=== PATIENT | female | born 1980 | race Caucasian/White ===

== ENCOUNTER 2023-01-25 10:52 | Outpatient (OUT) | payer OTHER, SELFPAY ==
--- NOTE | 2023-01-25 10:56 | MM_ITS ---
Patient: VERO MCGEE Exam Date: 01/25/2023 : 1980 Gender:F Ordering : DR Ilya Brennan . Admission #: [id number] Family : Non-Staff Physician Order #: [id number] CLICK HERE TO VIEW EXAM RADIOLOGY REPORT PROCEDURE: MM TOMOSYNTHESIS SCREENING BI COMPARISON: MG MAMM SCREEN 3D JAN CAD, 10/13/2021. MG MAMM SCREEN JAN W CAD, 05/13/2020. INDICATIONS: Screening Calculator Name NCI Breast Cancer Risk Assessment Tool 5 Year Breast Cancer Risk 0.60% Lifetime Breast Cancer Risk 8.90% Personal Breast Cancer No Personal Ovarian Cancer No Treatments None Family Cancers Aunt-maternal with breast cancer at age 60; Grandmother-maternal with leukemia cancer at age 20. LOCATION: [facility] BREAST COMPOSITION: Scattered areas fibroglandular density. FINDINGS: DIAGNOSTIC CATEGORY 2--BENIGN FINDING. NO CHANGE FROM COMPARISON. Scattered benign-appearing nodules are present. Scattered benign-appearing calcifications are present. Scattered benign-appearing lymph nodes are present. RIGHT BREAST: No significant suspicious finding. LEFT BREAST: No significant suspicious finding. RECOMMENDATIONS: ROUTINE MAMMOGRAM AND CLINICAL EVALUATION IN 12 MONTHS. PLEASE NOTE: A NORMAL MAMMOGRAM DOES NOT EXCLUDE THE POSSIBILITY OF BREAST CANCER. A CLINICALLY SUSPICIOUS PALPABLE LUMP SHOULD BE BIOPSIED. Dictated by: William Gandhi MD on 01/25/2023 at 12:38 Approved by: William Gandhi MD on 01/25/2023 at 12:39
== END 2023-01-25 10:53 | disposition home or self-care (01) ==
LOC: MAMMO 10:52
PROVIDERS: Visit Provider Obstetrics & Gynecology
DX: Z12.31 Encounter for screening mammogram for malignant neoplasm of breast (principal); Z80.3 Family history of malignant neoplasm of breast; Z80.6 Family history of leukemia
CPT/HCPCS: 77063; 77067

== ENCOUNTER 2023-03-12 18:05 | Emergency (ER) | payer OTHER, SELFPAY ==
[2023-03-12] VITALS (17 sets, daily range): BP systolic 109–148; BP diastolic 67–101; PULSE 58–90; RESP 16–24; TEMP 36.8; O2SAT 96–100; BMI 32.1
--- NOTE | 2023-03-12 18:39 | XR_ITS ---
The [address] [address] Patient Name: VERO MCGEE MRN: [id number] date: 1980 Sex: F Assigned Patient Location: ER Current Patient Location: ER Accession/Order Number: [id number] Exam Date: 03/12/2023 18:49 Report Date: 03/12/2023 19:29 At the request of: JENNIFER DAWKINS Procedure: XR chest 1V EXAMINATION: XR chest 1V, , 03/12/2023 6:49 PM EDT INDICATION: chest pain HISTORY: Ordering Provider Reason for Exam: chest pain Technologist Note: Additional: COMPARISON: None. TECHNIQUE: Chest x-ray: One view. FINDINGS: No pneumothorax, pleural effusion or focal airspace consolidation. Heart is normal in size. Bony thorax is unremarkable. XR/XR chest 1V IMPRESSION: No acute cardiopulmonary process. Electronically authenticated by: TORI OQUENDO Date: 03/12/2023 19:29
--- NOTE | 2023-03-12 18:39 | ECG_ITS ---
The 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
--- NOTE | 2023-03-12 18:40 | ED.CHESTPAI1 ---
HPI - Chest Pain General Chief Complaint: Chest Pain Stated Complaint: CHEST PAIN x2 days Time Seen by Provider: 03/12/23 18:22 Source: patient Mode of arrival: walk-in Limitations: no limitations History of Present Illness HPI narrative: patient here complaining of chest pain. She had episodes yesterday from 10 AM to about 5 PM. She was symptom-free throughout the evening and did not wake her up. She had some recurrence of similar symptoms today. She describes it as the sternal area discomfort that is a very quick stabbing jabbing-type sensation that does not persist and is not prolonged is just a quick sensation that comes and goes. She has no radiation of pain or discomfort to her neck and jaw or arms. She has no tearing sensation into her back. She had no syncopal episodes or palpitations. Risk profile includes negative hypertension diabetes cholesterol problems. She quit smoking tobacco products and number of years ago. She doesn't vapo from time to time. Her father had coronary disease at age less than fifty. She has never had a exercise stress testing in the past. She does not currently have a primary care doctor. She has no shortness of breath. She has no risk factors for deep vein thrombosis. She has no previous phlebitis or deep vein thrombosis or PE. She is otherwise healthy. She says she is under a lot of stress. She has not seen a doctor for quite some time. He says she feels better at this time Related Data Allergies Allergy/AdvReac Type Severity Reaction Status Date / Time acetaminophen Allergy Mild Dizziness Verified 03/12/23 18:15 [From Tylenol Sinus Severe Congest] guaifenesin Allergy Mild Dizziness Verified 03/12/23 18:15 [From Tylenol Sinus Severe Congest] pseudoephedrine Allergy Mild Dizziness Verified 03/12/23 18:15 [From Tylenol Sinus Severe Congest] tioconazole Allergy Mild Verified 03/12/23 18:15 [From Monistat 1 (tioconazole)] PFSH PFSH Social History Smoking status: Former smoker Exam Narrative Exam Narrative: awake alert very pleasant here with a female mental health consultant. Constitutional skin is warm and dry there is no of the pallor or anemia she is not clammy or diaphoretic. HEENT examination shows no thyromegaly no jugular vein distention. Eye examination no conjunctivitis although she gives a history of macular degeneration. Neck is soft and supple. Respiratory she has no wheezes rales or rhonchi clicks rubs are all negative. Chest examination shows no clicks rubs snaps or murmur. Her abdomen she has no abdominal discomfort. Her extremities show no evidence of leg edema deep vein thrombosis phlebitis or erythema. Neurological is at baseline with no focal complaints or findings. Constitutional Vital Signs, click to edit/add: Last Vital Signs Temp 98.2 F 03/12/23 18:15 Pulse 82 03/12/23 18:15 Resp 18 03/12/23 18:15 BP 148/93 H 03/12/23 18:15 Pulse Ox 100 03/12/23 18:15 O2 Del Method Room Air 03/12/23 18:15 Course Vital Signs Vital signs: Vital Signs Temperature 98.2 F 03/12/23 18:15 Pulse Rate 82 03/12/23 18:15 Respiratory Rate 18 03/12/23 18:15 Blood Pressure 148/93 H 03/12/23 18:15 Pulse Oximetry 100 03/12/23 18:15 Oxygen Delivery Method Room Air 03/12/23 18:15 Temperature 98.2 F 03/12/23 18:15 Pulse Rate 82 03/12/23 18:15 Respiratory Rate 18 03/12/23 18:15 Blood Pressure 148/93 H 03/12/23 18:15 Pulse Oximetry 100 03/12/23 18:15 Oxygen Delivery Method Room Air 03/12/23 18:15 MDM - Chest Pain MDM Narrative Medical decision making narrative: this patient presents with a family history on her paternal side of coronary disease but otherwise no other risk factors. She has an atypical chest pains presentation but we will do cardiac enzymes and d-dimer chest x-ray for baseline evaluation. Care will be turned over to Dr. Rios. Discharge Plan Discharge Chief Complaint: Chest Pain Clinical Impression: Chest pain Referrals: Physician,Non-Staff, MD [Primary Care Provider] - 1 week
[2023-03-12 19:01] LABS: Basophils Absolute Auto 0.1 10^3/uL (0.0-0.1); Basophils Percent Auto 0.8 % (0.2-2.0); Eosinophils Absolute Auto 0.2 10^3/uL (0.0-0.7); Eosinophils Percent Auto 2.6 % (0.9-7.0); Hematocrit 40.1 % (36.0-48.0); Hemoglobin 13.3 g/dL (12.0-16.0); Immature Granulocytes Abs Auto 0.02 10^3/uL (0.00-0.03); Immature Granulocytes Pct Auto 0.2 % (0.0-0.5); Lymphocytes Percent Auto 33.7 % (20.5-60.0); Mean Corpuscular HGB Conc 33.2 g/dL (29.9-35.2); Mean Corpuscular Hemoglobin 32.4 pg (26.7-34.0); Mean Corpuscular Volume 97.6 fL (81.0-99.0); Mean Platelet Volume 11.1 fL (9.5-13.5); Monocytes Absolute Auto 0.6 10^3/uL (0.3-0.8); Monocytes Percent Auto 6.7 % (1.7-12.0); Platelet Count 196 10^3/uL (150-450); Red Blood Count 4.11 10^6/uL (4.20-5.40); Red Cell Distribution Width 11.8 % (11.0-15.0); White Blood Count 8.9 10^3/uL (4.0-11.0)
[2023-03-12 19:10] LABS: Anion Gap 8.2; BUN Creatinine Ratio 29.2; Carbon Dioxide 29.6 mmol/L (21.0-32.0); Chloride 102 mmol/L (98-107); Estimated GFR (African America >60 (>=60); Estimated GFR (Non-African Ame >60 (>=60); Glucose 84 mg/dL (74-106); Potassium 3.8 mmol/L (3.5-5.1); Sodium 136 mmol/L (136-145)
--- NOTE | 2023-03-12 19:28 | CT_ITS ---
The [address] [address] Patient Name: VERO MCGEE MRN: [id number] date: 1980 Sex: F Assigned Patient Location: ER Current Patient Location: ER Accession/Order Number: [id number] Exam Date: 03/12/2023 20:27 Report Date: 03/12/2023 21:20 At the request of: KAELA BLAKELY Procedure: CT angio chest EXAM: CT angio chest HISTORY: PE, elevated d dimer COMPARISON: CT abdomen and pelvis 05/21/2019, chest radiograph 03/12/2023 TECHNIQUE: CT angiography of the pulmonary arteries following the administration of intravenous contrast. Coronal and sagittal MIP (maximum intensity projection) images were performed. 3-D image processing performed on a separate workstation. FINDINGS: The study is technically adequate for the diagnosis of pulmonary embolism, with good contrast bolus to the pulmonary arteries. TUBES AND IMPLANTS: None. CHEST WALL AND LOWER NECK: Unremarkable. BONES: No suspicious lesions UPPER ABDOMEN: Unremarkable. MEDIASTINUM AND NATASHA: Unremarkable. AORTA: Unremarkable. PULMONARY ARTERIES: No embolism HEART: Mild cardiomegaly CORONARY ARTERIES: No coronary artery calcifications. LUNG AND AIRWAYS: Mosaic attenuation. A 5 millimeter nodule is identified in the right upper lobe PLEURA: Unremarkable. CT/CT angio chest IMPRESSION: 1. No evidence for pulmonary embolism. 2. Mosaic attenuation suggesting small airways or small vessel disease. 3. A 5 millimeter right upper lobe nodule. Per Fleischner criteria optional twelve-month CT follow-up as clinically warranted. Electronically authenticated by: DIONICIO HUGHES Date: 03/12/2023 21:20
[2023-03-12 19:30] LABS: D Dimer 1.43 mg/L FEU (<=0.59)
--- NOTE | 2023-03-12 19:49 | ED_ITS ---
HPI - General Adult General Chief complaint: Chest Pain Stated complaint: CHEST PAIN x2 days Time Seen by Provider: 03/12/23 18:22 Source: patient Mode of arrival: walk-in Limitations: no limitations History of Present Illness HPI narrative: This 42-year-old female was signed out to me at shift change pending troponin and d-dimer. She presents for evaluation of sharp stabbing chest pain. Patient was seen and evaluated. She states that she is not having any pain at this time and is feeling well. She does not have any shortness of breath. Her troponin is normal at 4. D-dimer is elevated at 1.43. The results of this testing was discussed with the patient and she verbalizes understanding of the need for a CTA of the chest. CTA of the chest which is included in the body of this report is negative for acute findings But does show a 5 mm pulmonary nodule. The results of the CTA were discussed with the patient and she was given a copy of the report. She states she does not currently have a family physician but has seen Dr. Michel in the past and intends to follow up closely as an outpatient. She was encouraged return to emergency department for worsening chest pain shortness of breath dizziness syncope or any concerns. Related Data Allergies Allergy/AdvReac Type Severity Reaction Status Date / Time acetaminophen Allergy Mild Dizziness Verified 03/12/23 18:15 [From Tylenol Sinus Severe Congest] guaifenesin Allergy Mild Dizziness Verified 03/12/23 18:15 [From Tylenol Sinus Severe Congest] pseudoephedrine Allergy Mild Dizziness Verified 03/12/23 18:15 [From Tylenol Sinus Severe Congest] tioconazole Allergy Mild Verified 03/12/23 18:15 [From Monistat 1 (tioconazole)] PFSH PFS Social History Smoking status: Former smoker Exam Constitutional Vital Signs, click to edit/add: Last Vital Signs Temp 98.2 F 03/12/23 18:15 Pulse 60 03/12/23 19:50 Resp 17 03/12/23 19:50 BP 117/80 03/12/23 19:30 Pulse Ox 97 03/12/23 19:50 O2 Del Method Room Air 03/12/23 18:15 Course Vital Signs Vital signs: Vital Signs Blood Pressure 148/93 H 03/12/23 18:14 Pulse Oximetry 99 03/12/23 18:14 Temperature 98.2 F 10/10/23 18:15 Pulse Rate 60 03/12/23 19:50 Respiratory Rate 17 03/12/23 19:50 Blood Pressure 117/80 03/12/23 19:30 Pulse Oximetry 97 03/12/23 19:50 Oxygen Delivery Method Room Air 03/12/23 18:15 Medical Decision Making Medical Records Medical records narrative: The [address] [address] [address] Scan Report Signed Patient: VERO MCGEE MR#: [id number] : 1980 Acct:[id number] Age/Sex: 42 / F ADM Date: 03/12/23 Loc: ER Attending Dr: Ordering Physician: Kaela Richard Date of Service: 03/12/23 Procedure(s): CT angio chest Accession Number(s): [id number] cc: Physician,Non-Staff M.D.~ The [address] [address] Patient Name: VERO MCGEE MRN: [id number] date: 1980 Sex: F Assigned Patient Location: ER Current Patient Location: ER Accession/Order Number: [id number] Exam Date: 03/12/2023 20:27 Report Date: 03/12/2023 21:20 At the request of: KAELA RICHARD Procedure: CT angio chest EXAM: CT angio chest HISTORY: PE, elevated d dimer COMPARISON: CT abdomen and pelvis 05/21/2019, chest radiograph 03/12/2023 TECHNIQUE: CT angiography of the pulmonary arteries following the administration of intravenous contrast. Coronal and sagittal MIP (maximum intensity projection) images were performed. 3-D image processing performed on a separate workstation. FINDINGS: The study is technically adequate for the diagnosis of pulmonary embolism, with good contrast bolus to the pulmonary arteries. TUBES AND IMPLANTS: None. CHEST WALL AND LOWER NECK: Unremarkable. BONES: No suspicious lesions UPPER ABDOMEN: Unremarkable. MEDIASTINUM AND NATASHA: Unremarkable. AORTA: Unremarkable. PULMONARY ARTERIES: No embolism HEART: Mild cardiomegaly CORONARY ARTERIES: No coronary artery calcifications. LUNG AND AIRWAYS: Mosaic attenuation. A 5 millimeter nodule is identified in the right upper lobe PLEURA: Unremarkable. CT/CT angio chest IMPRESSION: 1. No evidence for pulmonary embolism. 2. Mosaic attenuation suggesting small airways or small vessel disease. 3. A 5 millimeter right upper lobe nodule. Per Fleischner criteria optional twelve-month CT follow-up as clinically warranted. Lab Data Labs: Lab Results 03/12/23 Range/Units 18:48 WBC 8.9 (4.0-11.0) 10^3/uL RBC 4.11 L (4.20-5.40) 10^6/uL Hgb 13.3 (12.0-16.0) g/dL Hct 40.1 (36.0-48.0) % MCV 97.6 (81.0-99.0) fL MCH 32.4 (26.7-34.0) pg MCHC 33.2 (29.9-35.2) g/dL RDW 11.8 (11.0-15.0) % Plt Count 196 (150-450) 10^3/uL MPV 11.1 (9.5-13.5) fL Neut % (Auto) 56.0 (43.0-75.0) % Lymph % (Auto) 33.7 (20.5-60.0) % [place]ferro % (Auto) 6.7 (1.7-12.0) % Eos % (Auto) 2.6 (0.9-7.0) % Baso % (Auto) 0.8 (0.2-2.0) % Neut # (Auto) 5.0 (1.4-6.5) 10^3/uL Lymph # (Auto) 3.0 (1.2-3.8) 10^3/uL [place] # (Auto) 0.6 (0.3-0.8) 10^3/uL Eos # (Auto) 0.2 (0.0-0.7) 10^3/uL Baso # (Auto) 0.1 (0.0-0.1) 10^3/uL Abs Immat Gran (auto) 0.02 (0.00-0.03) 10^3/uL Imm/Tot Granulo (auto) 0.2 (0.0-0.5) % D-Dimer 1.43 H* (<=0.59) mg/L FEU Sodium 136 (136-145) mmol/L Potassium 3.8 (3.5-5.1) mmol/L Chloride 102 (98-107) mmol/L Carbon Dioxide 29.6 (21.0-32.0) mmol/L Anion Gap 8.2 BUN 21.0 H (7.0-18.0) mg/dL Creatinine 0.72 (0.55-1.02) mg/dL Est GFR ( Amer) >60 (>=60) Est GFR (Non-Af Amer) >60 (>=60) BUN/Creatinine Ratio 29.2 Glucose 84 (74-106) mg/dL Calcium 9.0 (8.5-10.1) mg/dL Troponin I High Sens 4.0 (4.0-51.3) pg/mL Discharge Plan Discharge Chief Complaint: Chest Pain Clinical Impression: Chest pain, Pulmonary nodule, Atypical chest pain Patient Disposition: Home, Self-Care Time of Disposition Decision: 21:34 Condition: Good Instructions: Chest Pain (ED), Pulmonary Nodules (ED), Noncardiac Chest Pain (ED) Stand Alone Forms: Portal Instructions Referrals: Physician,Non-Staff, MD [Primary Care Provider] - 1 week
== END 2023-03-12 21:45 | disposition home or self-care (01) ==
PROVIDERS: Emergency Medicine Emergency Medical Services; Emergency Provider Emergency Medicine
DX: R07.89 Other chest pain (principal); R91.1 Solitary pulmonary nodule; Z87.891 Personal history of nicotine dependence
CPT/HCPCS: 36415; 71045; 71275; 80048; 84484; 85025; 85378; 93005; 99285; Q9967

== ENCOUNTER 2023-06-17 20:35 | Outpatient (REF) | payer OTHER, SELFPAY ==
[2023-06-20 14:11] LABS: Age Gdln ACOG Testing Note (.); HPV Aptima Negative (Negative); IGP, Aptima HPV, rfx 16/18,45 Note (.)
== END 2023-06-17 20:36 | disposition home or self-care (01) ==
LOC: LAB 20:35
PROVIDERS: Visit Provider Obstetrics & Gynecology
DX: Z01.419 Encounter for gynecological examination (general) (routine) without abnormal findings (principal)
CPT/HCPCS: 87624; G0145

== ENCOUNTER 2024-06-10 10:04 | Emergency (ER) | payer OTHER, SELFPAY ==
--- NOTE | 2024-06-10 10:06 | ECG_ITS ---
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
--- NOTE | 2024-06-10 10:06 | XR_ITS ---
The [address] [address] Patient Name: VERO MCGEE MRN: [id number] date: 1980 Sex: F Assigned Patient Location: ER Current Patient Location: ER Accession/Order Number: [id number] Exam Date: 06/10/2024 10:35 Report Date: 06/10/2024 10:53 At the request of: IGOR CHASE Procedure: XR chest 1V EXAM: XR chest 1V HISTORY: . cp . COMPARISON: 03/12/2023 TECHNIQUE: Single view of the chest FINDINGS: Heart and vascularity are unremarkable. Lungs are free of focal infiltrates. Grossly no acute bony abnormality is appreciated. EKG leads overlie the chest. XR/XR chest 1V IMPRESSION: No acute heart or lung disease identified. Electronically authenticated by: TERE BEJARANO Date: 06/10/2024 10:53
[2024-06-10 10:12] VITALS: BP 149/86; PULSE 86; TEMP 36.6; O2SAT 100; BMI 32.8
--- NOTE | 2024-06-10 10:15 | ED.GENADUL1 ---
HPI HPI - General Adult General Chief complaint: Chest Pain Stated complaint: CHEST DISCOMFORT, FATIGUE, LOW BLOOD PRESSURE Time Seen by Provider: 06/10/24 10:06 History of Present Illness HPI narrative: Patient presents to ED complaining of some chest pain twinges on and off for the past few days. She said she has not been feeling well for about a week with mild headache and fatigue. She started getting some chest pains on and off the past few days. 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 She has a history of a spot on her lung that has had a CT scan in the past and she is awaiting insurance approval for a second CAT scan to evaluate the nodule. No severe shortness of breath no hemoptysis. No nausea vomiting. Patient states last week at work she was very fatigued on and felt like she could maybe pass out because she was fatigued. She also reports some right calf pain but states she is on her feet all the time and could have strained her leg although she cannot be sure. No pain with breathing no hypoxia. Vital signs stable. She has been checking her pulse ox and blood pressure at work and at home but her blood her machine and pulse broke. She said she tried to get a hold of her family doctor but was unable to get in so she came in today for evaluation. Related Data Home Medications ?Medication ?Instructions ?Recorded ?Confirmed No Known Home Medications 06/10/24 06/10/24 Allergies Allergy/AdvReac Type Severity Reaction Status Date / Time acetaminophen (From Tylenol AdvReac Mild Dizziness Verified 06/10/24 10:13 Sinus Severe Congest) guaifenesin (From Tylenol AdvReac Mild Dizziness Verified 06/10/24 10:13 Sinus Severe Congest) pseudoephedrine (From AdvReac Mild Dizziness Verified 06/10/24 10:13 Tylenol Sinus Severe Congest) tioconazole (From Monistat 1 AdvReac Mild Unknown Verified 06/10/24 10:13 (tioconazole)) Opioid HPI Opioid Management Most Recent Opioid Data: No Data to Display Review of Systems ROS Status of ROS 10 or more systems reviewed and unremarkable except as noted in history and below PFSH PFSH Social History Smoking status: Former smoker Little interest or pleasure in doing things: not at all Feeling down, depressed, or hopeless: not at all Exam Narrative Exam Narrative: Time Seen: [] Vital Signs: [Per nurse's notes.] General: [Alert] Skin: [Warm, dry, no rash.] Head: [Normocephalic, atraumatic.] Neck: [Supple, trachea midline.] Eye: [Pupils are equal, round and reactive to light, extraocular movements are intact, normal conjunctiva.] Ears, nose, mouth and throat: oral mucosa moist. Cardiovascular: [Regular rate and rhythm, no murmur.] Respiratory: [Lungs are clear to auscultation, respirations are non-labored, breath sounds are equal.] Chest wall: [No tenderness, no deformity.] Gastrointestinal: [Soft, nontender, non distended, normal bowel sounds.] MSK: 5 out of 5 muscle strength x 4 extremities no lower extremity swelling, very mild posterior right calf pain. No redness Lymphatics: [No lymphadenopathy.] Psychiatric: [Cooperative, appropriate mood & affect.] Neurological: [Alert and oriented to person, place, time, and situation, no focal neurological deficit observed.] Constitutional Vital Signs, click to edit/add: Last Vital Signs Temp 98 F 06/10/24 10:12 Pulse 86 06/10/24 10:12 Resp 16 06/10/24 10:12 BP 149/86 H 06/10/24 10:12 Pulse Ox 100 06/10/24 10:12 O2 Del Method Room Air 06/10/24 10:12 Course Vital Signs Vital signs: Vital Signs Temperature 98 F 06/10/24 10:12 Pulse Rate 86 06/10/24 10:12 Respiratory Rate 16 06/10/24 10:12 Blood Pressure 149/86 H 06/10/24 10:12 Pulse Oximetry 100 06/10/24 10:12 Oxygen Delivery Method Room Air 06/10/24 10:12 Temperature 98 F 06/10/24 10:12 Pulse Rate 86 06/10/24 10:12 Respiratory Rate 16 06/10/24 10:12 Blood Pressure 149/86 H 06/10/24 10:12 Pulse Oximetry 100 06/10/24 10:12 Oxygen Delivery Method Room Air 06/10/24 10:12 Medical Decision Making MDM Narrative Medical decision making narrative: Patient's labs are negative for any acute findings. D-dimer is negative ruling out DVT and PE. Chest x-ray clear. Troponin is negative. Unclear exactly what her chest pain is coming from but please follow-up closely outpatient and repeat CT scan as is to be scheduled with Dr. Calzada. Return to ED of course if worsening symptoms syncope worsening chest pain or further concerns. Flu and COVID are negative. Patient is comfortable with care plan for home. Differential Diagnosis Differential Diagnosis: Flu COVID PE DVT chest pain Lab Data Lab results reviewed: Yes I reviewed the patient's lab results Labs: Lab Results 06/10/24 06/10/24 Range/Units 10:17 10:25 WBC 5.5 (4.0-11.0) 10^3/uL RBC 4.41 (4.20-5.40) 10^6/uL Hgb 14.1 (12.0-16.0) g/dL Hct 42.7 (36.0-48.0) % MCV 96.8 (81.0-99.0) fL MCH 32.0 (26.7-34.0) pg MCHC 33.0 (29.9-35.2) g/dL RDW 12.2 (11.0-15.0) % Plt Count 186 (150-450) 10^3/uL MPV 11.1 (9.5-13.5) fL Neut % (Auto) 58.3 (43.0-75.0) % Lymph % (Auto) 30.0 (20.5-60.0) % [place] % (Auto) 9.0 (1.7-12.0) % Eos % (Auto) 2.0 (0.9-7.0) % Baso % (Auto) 0.5 (0.2-2.0) % Neut # (Auto) 3.2 (1.4-6.5) 10^3/uL Lymph # (Auto) 1.6 (1.2-3.8) 10^3/uL [place] # (Auto) 0.5 (0.3-0.8) 10^3/uL Eos # (Auto) 0.1 (0.0-0.7) 10^3/uL Baso # (Auto) 0.0 (0.0-0.1) 10^3/uL Abs Immat Gran (auto) 0.01 (0.00-0.03) 10^3/uL Imm/Tot Granulo (auto) 0.2 (0.0-0.5) % D-Dimer <0.19 (<=0.59) mg/L FEU Sodium 142 (136-145) mmol/L Potassium 4.5 (3.5-5.1) mmol/L Chloride 103 (98-107) mmol/L Carbon Dioxide 30.3 (21.0-32.0) mmol/L Anion Gap 13.2 BUN 18.0 (7.0-18.0) mg/dL Creatinine 0.69 (0.55-1.02) mg/dL Est GFR ( Amer) >60 (>=60 mL/min/1.73m^2) Est GFR (Non-Af Amer) >60 (>=60 mL/min/1.73m^2) BUN/Creatinine Ratio 26.1 Glucose 89 (74-106) mg/dL Calcium 9.3 (8.5-10.1) mg/dL Total Bilirubin 0.5 (0.2-1.0) mg/dL AST 17 (15-37) U/L ALT 26 (14-59) U/L Alkaline Phosphatase 65 (46-116) U/L Troponin I High Sens <4.0 L (4.0-51.3) pg/mL Total Protein 7.5 (6.4-8.2) g/dL Albumin 4.1 (3.4-5.0) g/dL Globulin 3.4 g/dL Albumin/Globulin Ratio 1.2 Influenza Type A Ag Negative Influenza Type B Ag Negative SARS-CoV-2 Ag (CV2AG) Negative (NEGATIVE) Imaging Data Chest x-ray: Radiologist's impression: ITS Impressions Chest X-Ray 06/10/24 10:06 IMPRESSION: No acute heart or lung disease identified. Electronically authenticated by: TERE BEJARANO Date: 06/10/2024 10:53 ECG Data Attestation: I personally reviewed and interpreted this ECG as follows: Interpretation: EKG INTERPRETATION Time: [] 1021 Rate: [] 55 Rhythm: _ [] Sinus bradycardia ST segments: _ [] No acute ST elevation or depression T waves: _ [] Ectopy: _ [] P wave/ID interval: _ [] QRS interval: _ [] QT interval: _ [] Comparison: _ [] Comparison EKG date: [] Performed by: [self] Discharge Plan Discharge Chief Complaint: Chest Pain Clinical Impression: Chest pain Patient Disposition: Home, Self-Care Time of Disposition Decision: 10:57 Condition: Good Mode of Transportation: Private Vehicle Prescriptions / Home Meds: No Action No Known Home Medications Print Language: Indonesian Instructions: Chest Pain (ED) Referrals: ERICA CARTER [Primary Care Provider] - 1 week Discharge Date/Time: 06/10/24 11:13
[2024-06-10 10:25] LABS: Basophils Percent Auto 0.5 % (0.2-2.0); Eosinophils Absolute Auto 0.1 10^3/uL (0.0-0.7); Hematocrit 42.7 % (36.0-48.0); Hemoglobin 14.1 g/dL (12.0-16.0); Immature Granulocytes Abs Auto 0.01 10^3/uL (0.00-0.03); Immature Granulocytes Pct Auto 0.2 % (0.0-0.5); Lymphocytes Absolute Auto 1.6 10^3/uL (1.2-3.8); Mean Corpuscular Volume 96.8 fL (81.0-99.0); Mean Platelet Volume 11.1 fL (9.5-13.5); Monocytes Absolute Auto 0.5 10^3/uL (0.3-0.8); Neutrophils Absolute Auto 3.2 10^3/uL (1.4-6.5); Neutrophils Percent Auto 58.3 % (43.0-75.0); Platelet Count 186 10^3/uL (150-450); Red Blood Count 4.41 10^6/uL (4.20-5.40); Red Cell Distribution Width 12.2 % (11.0-15.0); White Blood Count 5.5 10^3/uL (4.0-11.0)
[2024-06-10 10:37] LABS: Alanine Aminotransferase 26 U/L (14-59); Albumin Globulin Ratio 1.2; Albumin Level 4.1 g/dL (3.4-5.0); Alkaline Phosphatase 65 U/L (46-116); Anion Gap 13.2; Aspartate Amino Transferase 17 U/L (15-37); BUN Creatinine Ratio 26.1; Bilirubin Total 0.5 mg/dL (0.2-1.0); Calcium 9.3 mg/dL (8.5-10.1); Carbon Dioxide 30.3 mmol/L (21.0-32.0); Chloride 103 mmol/L (98-107); Estimated GFR (African America >60 (>=60 mL/min/1.73m^2); Estimated GFR (Non-African Ame >60 (>=60 mL/min/1.73m^2); Globulin 3.4 g/dL; Glucose 89 mg/dL (74-106); Potassium 4.5 mmol/L (3.5-5.1); Sodium 142 mmol/L (136-145); Total Protein 7.5 g/dL (6.4-8.2)
[2024-06-10 10:39] LABS: Troponin I High Sensitivity <4.0 pg/mL (4.0-51.3)
[2024-06-10 10:41] LABS: D Dimer <0.19 mg/L FEU (<=0.59)
[2024-06-10 10:52] LABS: Influenza Virus A Antigen Negative; Influenza Virus B Antigen Negative; Internal Control Within Normal Limits; SARS-CoV-2 Ag NEGATIVE (NEGATIVE)
== END 2024-06-10 11:13 | disposition home or self-care (01) ==
PROVIDERS: Emergency Provider Emergency Medicine; PCP Nurse Practitioner
DX: R07.9 Chest pain, unspecified (principal); Z87.891 Personal history of nicotine dependence
CPT/HCPCS: 36415; 71045; 80053; 84484; 85025; 85378; 87804; 87811; 93005; 99285

== ENCOUNTER 2024-07-22 10:20 | Outpatient (OUT) | payer OTHER, SELFPAY ==
--- NOTE | 2024-07-22 10:23 | CT_ITS ---
The [address] [address] Patient Name: VERO MCGEE MRN: [id number] date: 1980 Sex: F Assigned Patient Location: CT Current Patient Location: CT Accession/Order Number: [id number] Exam Date: 07/22/2024 22:18 Report Date: 07/22/2024 22:23 At the request of: ERICA CARTER Procedure: CT chest wo con CT chest wo con 07/22/2024 10:37 AM SIGN AND SYMPTOMS: Follow-up lung nodule TECHNIQUE: Multidetector CT axial slices of the chest were obtained without IV contrast. Multiplanar reformats were performed and viewed on a separate workstation and reviewed to further define anatomy and possible pathology. CT was performed with one or more of the following dose reduction techniques: Automated exposure control, adjustment of the mA and/or kV according to patient size, or use of iterative reconstruction technique. COMPARISON: 03/12/2023. FINDINGS: Lower neck: Thyroid gland within normal limits, no supraclavicle adenopathy. Vessels: Within normal limits. Mediastinum and Beatriz: Within normal limits. Heart: Normal size. No pericardial effusion. Airways: Within normal limits Lungs: There is a 6 mm nodule in the anterior aspect of the right upper lobe on series 4 image 47. This is unchanged compared to the prior exam. There has been interval improvement in diffuse mosaic attenuation. There is similar linear scarring at the left lung base. Pleura: Within normal limits. Chest Wall: Within normal limits. Upper Abdomen: There is a 3 mm nonobstructing stone in the left renal collecting system. Bones: Degenerative changes are present in the thoracic spine. CT/CT chest wo con IMPRESSION: There is a 6 mm nodule in the anterior aspect of the right upper lobe on series 4 image 47. This is unchanged compared to the prior exam. Continued interval follow-up per Fleischner guidelines is recommended. There has been interval improvement in diffuse mosaic attenuation. Impression dictated by: Shyam Baez M.D.07/22/2024 10:23 PM Dictation Location: [facility] NETWORKSuper [facility] [employer] Electronically authenticated by: [id number] Y Date: 07/22/2024 22:23
--- OUTSIDE RECORDS SUMMARY | 2024-07-22 10:42 | XMS_ITS | CCD ---
Author Organization 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 Name Role Phone REQUEST, DR NONE LISTED Primary Care Unavaila ble VICKI, SHANNAN Admitting Unavailable VICKI, SHANNAN Attending Unavailable REDDY, LATA SHERWOOD Consulting Unavailable JOHNY, DR MURPHY Admitting Unavailable JOHNY, DR MURPHY Attending Unavailable RADHA BAR Primary Care Unavailable Sublette, DR Thomas Consulting Unavailable JOHNY, DR MURPHY Consulting Unavailable JOHNY, DR MURPHY Admitting Unavailable JOHNY, DR MURPHY Attending Unavailable RADHA BAR Primary Care Unavailable JOHNY, DR MURPHY Consulting Unavailable VICKI, SHANNAN Admitting Unavailable VICKI, SHANNAN Attending Unavailable REQUEST, NONE LISTED Primary Care Unavaila ble VICKI, SHANNAN Consulting Unavailable VALDEZISMAEL Consulting Unavailable REQUEST, DR SHOEMAKER LISTED Primary Care Unavaila ble VICKI, SHANNAN Admitting Unavailable VICKI, SHANNAN Attending Unavailable VICKI, SHANNAN Consulting Unavailable REQUEST, NONE LISTED Primary Care Unavaila ble MARKER, DR PHAM Admitting Unavailable MARKER, DR PHAM Attending Unavailable MARKER, DR PHAM Consulting Unavailable RAUL, ERICA J Referring Unavailable CARTER, ERICA J Primary Care Unavailable Unavailable Primary Care Provider UnavailKATHERINE Luis Attending Unavailable BRITTANY SNOW Attending Unavailable RYLEY CARTERERIE Alison Attending Unavailable CARTER, ERICA J Referring Unavailable CARTER, ERICA J Primary Care Unavailable CARTER, ERICA J Attending Unavailable CARTER, ERICA J Referring Unavailable CARTER, ERICA J Primary Care Unavailable Allergies Allergy Classification Reported Allergen(s) Allergy Type Date of Onset Reaction(s) Facility (1 source) Acetaminophen / Pseudoephedrine Drug Allergy 12-02-19 14 [facility] Repository (1 source) Miconazole Drug Allergy 07-14-19 15 [facility] Repository (2 sources) Adhesive agent; Translations: [ADHESIVE] Propensity to adverse reactions to drug (disorder) 01-03-20 24 [facility] Repository (4 sources) Miconazole; Translations: [MICONAZOLE] Drug Allergy 06-05-19 [facility] Repository (4 sources) PSEUDOEPHEDRINE-ACET AMINOPHEN; Translations: [PSEUDOEPHEDRINE-NOMAN TAMINOPHEN] Propensity to adverse reactions to drug (disorder) 06-05-19 Hives [facility] Repository (2 sources) Chlorpheniramine Drug Allergy 06-12-19 [facility] Healthcare Work Phone: (2 sources) guaiFENesin Drug Allergy 06-12-19 Other [facility] Healthcare (2 sources) Miconazole Drug Allergy 06-12-19 Other [facility] Healthcare (2 sources) Phenylephrine Drug Allergy 06-12-19 Other [facility] Healthcare (2 sources) Wound Dressing Adhesive Drug Intolerance 06-05-19 Rash [facility] Medications Current Medications Medication Drug Class(es) Dates Sig (Normalized) Sig (Original) cholecalciferol 0.05 mg oral capsule (2 sources) Vitamin D Start: 06-10-2023 take 1 capsule by mouth in the morning cholecalciferol (Vitamin D-3) 50 MCG (1999) capsule Take 2,000 Units by mouth in the morning. 0 06/10/2023 Active DULoxetine 60 mg delayed release oral capsule (2 sources) Serotonin and Norepinephrine Reuptake Inhibitor Start: 07-04-2023 take 1 capsule by mouth in the morning DULoxetine (Cymbalta) [address] capsule Take 60 mg by mouth in the morning. 0 07/04/2023 Active metFORMIN hydrochloride 500 mg oral tablet (2 sources) Biguanide Start: 06-17-2023 End: 06-16-2024 take 1 tablet by mouth at mealtime metFORMIN (Glucophage) 500 MG tablet Indications: Encounter for weight management Take 1 tablet (500 mg) by mouth in the morning. Take with meals. 30 tablet 11 06/17/2023 06/16/2024 Active phentermine hydrochloride 37.5 mg oral tablet (2 sources) Sympathomimetic Amine Anorectic Start: 07-15-2023 End: 08-14-2023 take 1 tablet by mouth before mealtime phentermine (Adipex-P) 37.5 MG tablet Indications: Encounter for weight management Take 1 tablet (37.5 mg) by mouth in the morning. Take before meals. 30 tablet 0 07/15/2023 08/14/2023 Active Problems Active Problems Problem Classification Problem Date Documented Date Episodic/Chronic Administrative/social admission (2 sources) Patient encounter status; Translations: [Persons encountering health services in other specified circumstances] 07-10-2023 Episodic Deficiency and other anemia (1 source) Other iron deficiency anemias; Translations: [Other iron deficiency anemias] Onset: 06-05-2023 Episodic Malaise and fatigue (1 source) Other fatigue; Translations: [Other fatigue] Onset: 06-05-2023 Episodic Nutritional deficiencies (1 source) Vitamin D deficiency, unspecified; Translations: [Vitamin D deficiency, unspecified] Onset: 06-05-2023 Chronic Other aftercare (1 source) 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; Translations: [OTH DETENTION CURRENT DRUG THERAPY] Onset: 07-11-2022 Episodic Other lower respiratory disease (1 source) Solitary pulmonary nodule; Translations: [Solitary pulmonary nodule] Onset: 06-24-2024 Episodic Other skin disorders (3 sources) Rash and other nonspecific skin eruption; Translations: [RASH OTH NONSPECIFIC SKIN ERUPTION] Onset: 07-04-2022 Episodic Other skin disorders (4 sources) Sebaceous cyst; Translations: [SEBACEOUS CYST] Onset: 06-13-2022 Episodic Residual codes; unclassified (1 source) Other specified postprocedural states; Translations: [OTH SPECIFIED POSTPROCEDURAL STATES] Onset: 07-11-2022 Episodic Residual codes; unclassified (1 source) Family history of diseases of the skin and subcutaneous tissue; Translations: [Family history of diseases of the skin and subcutaneous tissue] Onset: 06-05-2023 Episodic Skin and subcutaneous tissue infections (4 sources) Cutaneous abscess of chest wall; Translations: [CUTANEOUS ABSCESS OF CHEST WALL] Onset: 06-10-2022 Episodic Substance-related disorders (1 source) Nicotine dependence, cigarettes, uncomplicated; Translations: [NICOTINE DEPEND CIGARETTES UNCOMP] Onset: 07-11-2022 Chronic Unclassified (1 source) discuss ct per samsa Onset: 06-24-2024 Unclassified (1 source) Annual Exam Onset: 07-04-2023 Viral infection (1 source) Zoster without complications; Translations: [ZOSTER WITHOUT COMPLICATIONS] Onset: 02-08-2023 Episodic Past or Other Problems Problem Classification Problem Date Documented Date Episodic/Chronic E Codes: Natural/environment (1 source) Other and unspecified overexertion or strenuous movements or postures, initial encounter; Translations: [OTH AND UNS OVREXRT/STRN MVMT/POS INT] Onset: 02-05-2022 Episodic E Codes: Unspecified (1 source) Activity, running; Translations: [ACTIVITY RUNNING] Onset: 02-05-2022 Episodic Genitourinary symptoms and ill-defined conditions (4 sources) Frequency of micturition; Translations: [FREQUENCY OF MICTURITION] Onset: 01-17-2022 Episodic Immunizations and screening for infectious disease (1 source) Encounter for screening for human papillomavirus (HPV); Translations: [ENC SCREENING HUMAN PAPILLOMAVIRUS] Onset: 01-18-2022 Episodic Other connective tissue disease (3 sources) Pain in right foot; Translations: [PAIN IN RIGHT FOOT] Onset: 02-03-2022 Episodic Other connective tissue disease (1 source) Fibromyalgia; Translations: [Fibromyalgia] Onset: 06-05-2023 Episodic Other screening for suspected conditions (not mental disorders or infectious disease) (5 sources) Encounter for screening for malignant neoplasm of cervix; Translations: [Encounter for screening mammogram for malignant neoplasm of breast] Onset: 10-13-2021 Episodic Residual codes; unclassified (1 source) Family history of malignant neoplasm of breast; Translations: [FAMILY HX MALIG NEOPLASM OF BREAST] Onset: 10-18-2021 Episodic Residual codes; unclassified (1 source) Family history of leukemia; Translations: [FAMILY HISTORY OF LEUKEMIA] Onset: 10-18-2021 Episodic Sprains and strains (1 source) Unspecified sprain of right foot, initial encounter; Translations: [UNSPECIFIED SPRAIN RT FOOT INITIAL] Onset: 02-05-2022 Episodic Results Test Name Value Interpretation Reference Range Facility CBC AND AUTO DIFFon 06-05-19 ABSOLUTE BASOPHIL 0.1 X10E9/L Normal 0.0-0.2 [facility] Comment on above: Performed By: #### 1 9123-9, FEPR, 2276-4, 52615-2, 2132-9, 3016-3, 93743-6, CBCA, 40705-0, CMP #### [facility] ([id number]) [address], [address] [place] [address] ABSOLUTE NEUTROPHIL 3.5 X10E9/L Normal 1.5-6.6 [facility] Comment on above: Performed By: #### 1 9123-9, FEPR, 2276-4, 40044-2, 2132-9, 3016-3, 35897-1, CBCA, 78578-5, CMP #### [facility] ([id number]) [address], [address] [place] [address] Basophils/100 WBC (Bld) 0.9 % Normal [facility] Comment on above: Performed By: #### 1 9123-9, FEPR, 2276-4, 40414-7, 2132-9, 3016-3, 00093-0, CBCA, 41416-2, CMP #### [facility] ([id number]) [address], [address] [place] [address] Eosinophils (Bld) [#/Vol] 0.2 10*3/uL Normal 0.0-0.[address] [facility] Comment on above: Performed By: #### 1 9123-9, FEPR, 2276-4, 48990-6, 2132-9, 3016-3, 15985-2, CBCA, 59321-5, CMP #### [facility] ([id number]) [address], [address] [place] [address] Eosinophils/100 WBC (Bld) 2.7 % Normal [facility] Comment on above: Performed By: #### 1 9123-9, FEPR, 2276-4, 94151-1, 2132-9, 3016-3, 93298-7, CBCA, 43367-9, CMP #### [facility] ([id number]) [address], [address] [place] [address] Erythrocyte distribution width (RBC) [Ratio] 13.2 % Normal 11.5-15.[address] [facility] Comment on above: Performed By: #### 1 9123-9, FEPR, 2276-4, 41922-6, 2132-9, 3016-3, 67940-1, CBCA, 30143-0, CMP #### [facility] ([id number]) [address], [address] [place] [address] Hematocrit (Bld) [Volume fraction] 40.6 % Normal 35-[address] [facility] Comment on above: Performed By: #### 1 9123-9, FEPR, 2276-4, 54997-1, 2132-9, 3016-3, 74983-4, CBCA, 84368-9, CMP #### [facility] ([id number]) [address], [address] [place] [address] Hemoglobin (Bld) [Mass/Vol] 14.0 g/dL Normal 11.7-15.[address] [facility] Comment on above: Performed By: #### 1 9123-9, FEPR, 2276-4, 13523-8, 2132-9, 3016-3, 92623-1, CBCA, 69345-1, CMP #### [facility] ([id number]) [address], [address] [place] [address] Lymphocytes (Bld) [#/Vol] 1.7 10*3/uL Normal 1.0-3.[address] [facility] Comment on above: Performed By: #### 1 9123-9, FEPR, 2276-4, 57773-6, 2132-9, 3016-3, 14396-3, CBCA, 21325-5, CMP #### [facility] ([id number]) [address], [address] [place] [address] Lymphocytes/100 WBC (Bld) 28.9 % Normal [facility] Comment on above: Performed By: #### 1 9123-9, FEPR, 2276-4, 01542-7, 2132-9, 3016-3, 84534-8, CBCA, 37658-8, CMP #### [facility] ([id number]) [address], [address] [place] [address] MCH (RBC) [Entitic mass] 32.5 pg Normal 27-[address] [facility] Comment on above: Performed By: #### 1 9123-9, FEPR, 2276-4, 76938-2, 2132-9, 3016-3, 87738-8, CBCA, 59991-1, CMP #### [facility] ([id number]) [address], [address] [place] [address] MCHC (RBC) [Mass/Vol] 34.5 g/dL Normal 32-[address] [facility] Comment on above: Performed By: #### 1 9123-9, FEPR, 2276-4, 70038-8, 2132-9, 3016-3, 47102-0, CBCA, 36553-7, CMP #### [facility] ([id number]) [address], [address] [place] [address] MCV (RBC) [Entitic vol] 94 fL Normal 80-[address] [facility] Comment on above: Performed By: #### 1 9123-9, FEPR, 2276-4, 66381-5, 2132-9, 3016-3, 29060-6, CBCA, 54839-7, CMP #### [facility] ([id number]) [address], [address] [place] [address] Monocytes (Bld) [#/Vol] 0.4 10*3/uL Normal 0-0.[address] [facility] Comment on above: Performed By: #### 1 9123-9, FEPR, 2276-4, 50241-4, 2132-9, 3016-3, 20064-1, CBCA, 57802-0, CMP #### [facility] ([id number]) [address], [address] [place] [address] Monocytes/100 WBC (Bld) 6.9 % Normal [facility] Comment on above: Performed By: #### 1 9123-9, FEPR, 2276-4, 01798-2, 2132-9, 3016-3, 46243-8, CBCA, 52758-2, CMP #### [facility] ([id number]) [address], [address] [place] [address] Neutrophils/100 WBC (Bld) 60.6 % Normal [facility] Comment on above: Performed By: #### 1 9123-9, FEPR, 2276-4, 66345-5, 2132-9, 3016-3, 57007-1, CBCA, 95153-1, CMP #### [facility] ([id number]) [address], [address] [place] [address] Platelet mean volume (Bld) [Entitic vol] 9.8 fL Normal 7-[address] [facility] Comment on above: Performed By: #### 1 9123-9, FEPR, 2276-4, 67225-8, 2132-9, 3016-3, 70242-7, CBCA, 04811-4, CMP #### [facility] ([id number]) [address], [address] [address] Platelets (Bld) [#/Vol] 181 10*3/uL Normal 150-[address] [facility] Comment on above: Performed By: #### 1 9123-9, FEPR, 2276-4, 97377-7, 2132-9, 3016-3, 84548-0, CBCA, 06135-0, CMP #### [facility] ([id number]) [address], [address] [place] [address] RBC COUNT 4.31 X10E12/L Normal 3.80-5.[address] [facility] Comment on above: Performed By: #### 1 9123-9, FEPR, 2276-4, 65901-2, 2132-9, 3016-3, 83739-6, CBCA, 34020-0, CMP #### [facility] ([id number]) [address] [facility], [address] [place] [address] WBC (Bld) [#/Vol] 5.8 10*3/uL Normal 4.0-11.0 [facility] Comment on above: Performed By: #### 1 9123-9, FEPR, 2276-4, 24350-7, 2132-9, 3016-3, 54714-9, CBCA, 12654-5, CMP #### [facility] ([id number]) [address], [address] [place] [address] COMPREHENSIVE METABOLIC PANE Ang 06-05-2023 Albumin [Mass/Vol] 4.8 g/dL Normal 3.2-5.3 [facility] Comment on above: Performed By: #### 1 9123-9, FEPR, 2276-4, 04382-6, 2132-9, 3016-3, 19328-1, CBCA, 48072-1, CMP #### [facility] ([id number]) [address] [place] [address], [address] [place] [address] ALP [Catalytic activity/Vol] 74 U/L Normal 39-[address] [facility] Comment on above: Performed By: #### 1 9123-9, FEPR, 2276-4, 38371-3, 2132-9, 3016-3, 40458-0, CBCA, 97268-1, CMP #### [facility] ([id number]) [address] [place] [address], [address] [place] [address] ALT [Catalytic activity/Vol] 37 U/L High 0-[address] [facility] Comment on above: Performed By: #### 1 9123-9, FEPR, 2276-4, 31189-6, 2132-9, 3016-3, 99235-6, CBCA, 05012-9, CMP #### [facility] ([id number]) [address], [address] [place] [address] Anion gap [Moles/Vol] 11 mmol/L Normal 5-[address] [facility] Comment on above: Performed By: #### 1 9123-9, FEPR, 2276-4, 72690-0, 2132-9, 3016-3, 24341-3, CBCA, 59929-8, CMP #### [facility] ([id number]) [address], [address] [place] [address] AST [Catalytic activity/Vol] 30 U/L Normal 0-[address] [facility] Comment on above: Performed By: #### 1 9123-9, FEPR, 2276-4, 13155-3, 2132-9, 3016-3, 91920-5, CBCA, 75256-7, CMP #### [facility] ([id number]) [address], [address] [place] [address] Bilirubin [Mass/Vol] 0.5 mg/dL Normal 0.3-1.[address] [facility] Comment on above: Performed By: #### 1 9123-9, FEPR, 2276-4, 76120-4, 2132-9, 3016-3, 50719-5, CBCA, 73815-5, CMP #### [facility] ([id number]) [address], [address] [place] [address] Calcium [Mass/Vol] 9.5 mg/dL Normal 8.5-10.5 [facility] Comment on above: Performed By: #### 1 9123-9, FEPR, 2276-4, 18718-9, 2132-9, 3016-3, 05382-5, CBCA, 35896-8, CMP #### [facility] ([id number]) [address], [address] [place] [address] Chloride [Moles/Vol] 100 mmol/L Normal 98-[address] [facility] Comment on above: Performed By: #### 1 9123-9, FEPR, 2276-4, 46583-5, 2132-9, 3016-3, 84907-9, CBCA, 12883-4, CMP #### [facility] ([id number]) [address], [address] [place] [address] CO2 [Moles/Vol] 27 mmol/L Normal 22-[address] [facility] Comment on above: Performed By: #### 1 9123-9, FEPR, 2276-4, 84472-6, 2132-9, 3016-3, 43787-6, CBCA, 75360-5, CMP #### [facility] ([id number]) [address], [address] [place] [address] Creatinine [Mass/Vol] 0.61 mg/dL Normal 0.40-1.[address] [facility] Comment on above: Result Comment: METH OD TRACEABLE TO IDMS STANDARD Performed By: #### 1 9123-9, FEPR, 2276-4, 32052-7, 2132-9, 3016-3, 27995-9, CBCA, 18816-8, CMP #### [facility] ([id number]) [address], [address] [place] [address] eGFR (CKD-EPI) NON-RACE DEPENDENT >90 Normal >[address] [facility] Comment on above: Result Comment: Reported eGFR is based on the CKD-EPI 2020 equation that does not use a race coefficient. Performed By: #### 1 9123-9, FEPR, 2276-4, 51263-3, 2132-9, 3016-3, 45019-0, CBCA, 04645-1, CMP #### [facility] ([id number]) [address], [address] [place] [address] Glucose [Mass/Vol] 99 mg/dL Normal 65-99 [facility] Comment on above: Performed By: #### 1 9123-9, FEPR, 2276-4, 11093-6, 2132-9, 3016-3, 05719-1, CBCA, 95398-1, CMP #### [facility] ([id number]) [address], [address] [place] [address] Potassium [Moles/Vol] 4.3 mmol/L Normal 3.5-5.[address] [facility] Comment on above: Performed By: #### 1 9123-9, FEPR, 2276-4, 83045-9, 2132-9, 3016-3, 47325-2, CBCA, 04676-0, CMP #### [facility] ([id number]) [address], [address] [place] [address] Protein [Mass/Vol] 7.7 g/dL Normal 6.0-8.0 [facility] Comment on above: Performed By: #### 1 9123-9, FEPR, 2276-4, 08134-2, 2132-9, 3016-3, 55804-1, CBCA, 27148-0, CMP #### [facility] ([id number]) [address], [address] [place] [address] Sodium [Moles/Vol] 138 mmol/L Normal 134-146 [facility] Comment on above: Performed By: #### 1 9123-9, FEPR, 2276-4, 64847-6, 2132-9, 3016-3, 60649-1, CBCA, 55325-2, CMP #### [facility] ([id number]) [address], [address] [place] [address] Urea nitrogen [Mass/Vol] 15 mg/dL Normal 5-[address] [facility] Comment on above: Performed By: #### 1 9123-9, FEPR, 2276-4, 28338-0, 2132-9, 3016-3, 48533-1, CBCA, 18571-9, CMP #### [facility] ([id number]) [address] [facility], [address] [place] [address] FERRITINon 06-05-2023 Ferritin [Mass/Vol] 108 ng/mL Normal 11-307 [facility] Comment on above: Performed By: #### 1 9123-9, FEPR, 2276-4, 28818-1, 2132-9, 3016-3, 77198-4, CBCA, 58918-6, CMP #### [facility] ([id number]) [address] [facility], [address] [place] [address] HGB A1C (GLYCO-HGB)on 2023 Glucose [Mass/Vol] 97 mg/dL Normal [facility] Comment on above: Performed By: #### 1 9123-9, FEPR, 2276-4, 66655-6, 2132-9, 3016-3, 60809-6, CBCA, 09611-0, CMP #### [facility] ([id number]) [address] [facility], [address] [place] [address] HbA1c (Bld) [Mass fraction] 5.0 % Normal 4.4-5.[address] [facility] Comment on above: Result Comment: NOTE ADA Guidelines Result HgbA1c Normal : less than 5.7 % Prediabetes : 5.7 % to 6.4 % Diabetes : > 6.4 % Use with caution in patients with abnormal hemoglobin variants as the half-life of red blood cells and in vivo glycation rates are affected. Performed By: #### 1 9123-9, FEPR, 2276-4, 73681-4, 2132-9, 3016-3, 11148-5, CBCA, 70702-9, CMP #### [facility] ([id number]) [address] [address], [address] [place] [address] IRON PROFILEon 06-05-2023 Iron [Mass/Vol] 86 ug/dL Normal 50-[address] [facility] Comment on above: Performed By: #### 1 9123-9, FEPR, 2276-4, 14505-4, 2132-9, 3016-3, 04506-6, CBCA, 86422-0, CMP #### [facility] ([id number]) [address], [address] [place] [address] IRON BINDING 391 ug/dL Normal 250-[address] [facility] Comment on above: Performed By: #### 1 9123-9, FEPR, 2276-4, 02874-4, 2132-9, 3016-3, 40302-9, CBCA, 03695-3, CMP #### [facility] ([id number]) [address] [facility], [address] [place] [address] IRON SATURATION 22 % SATURATION Normal 15-50 [facility] Comment on above: Performed By: #### 1 9123-9, FEPR, 2276-4, 80307-0, 2132-9, 3016-3, 27127-3, CBCA, 54636-6, CMP #### [facility] ([id number]) [address], [address] [place] [address] Lipid 1996 panelon 4 Cholesterol [Mass/Vol] 188 mg/dL Normal 150-[address] [facility] Comment on above: Performed By: #### 1 9123-9, FEPR, 2276-4, 71228-8, 2132-9, 3016-3, 66180-4, CBCA, 69247-2, CMP #### [facility] ([id number]) [address], [address] [place] [address] Cholesterol in HDL [Mass/Vol] 83 mg/dL Normal >[address] [facility] Comment on above: Result Comment: HDL <40 mg/dL - High Risk HDL > or = 40mg/dL- Desirable HDL >60 mg/dL - Negative Risk Performed By: #### 1 9123-9, FEPR, 2276-4, 02929-5, 2132-9, 3016-3, 26553-0, CBCA, 64741-2, CMP #### [facility] ([id number]) [address], [address] [place] [address] Cholesterol in LDL [Mass/Vol] 81 mg/dL Normal <[address] [facility] Comment on above: Result Comment: LDL <100 mg/dL - Desirable LDL >160 mg/dL - High Risk Performed By: #### 1 9123-9, FEPR, 2276-4, 81962-1, 2132-9, 3016-3, 25666-1, CBCA, 10445-4, CMP #### [facility] ([id number]) [address], [address] [place] [address] Cholesterol in VLDL [Mass/Vol] 24 mg/dL Normal 0-[address] [facility] Comment on above: Performed By: #### 1 9123-9, FEPR, 2276-4, 26963-7, 2132-9, 3016-3, 52357-0, CBCA, 22294-6, CMP #### [facility] ([id number]) [address], [address] [place] [address] CHOLESTEROL:HDL 2.3 Normal 1.0-5.[address] [facility] Comment on above: Performed By: #### 1 9123-9, FEPR, 2276-4, 11461-6, 2132-9, 3016-3, 96541-7, CBCA, 22139-2, CMP #### [facility] ([id number]) [address], [address] [place] [address] Triglyceride [Mass/Vol] 119 mg/dL Normal 27-[address] [facility] Comment on above: Performed By: #### 1 9123-9, FEPR, 2276-4, 46330-0, 2132-9, 3016-3, 68289-1, CBCA, 50016-5, CMP #### [facility] ([id number]) [address], [address] [place] [address] MAGNESIUMon 06-05-2023 Magnesium [Mass/Vol] 2.0 mg/dL Normal 1.8-2.[address] [facility] Comment on above: Performed By: #### 1 9123-9, FEPR, 2276-4, 83363-8, 2131-9, 3016-3, 33381-9, CBCA, 57333-0, CMP #### [facility] ([id number]) [address] [place] [address] Nuclear Ab IA Ql (S)on 06-05 GEOFF Screen w/reflex Negative Normal NEG [facility] Comment on above: Result Comment: Testing performed using multiplex flow immunoassay. Eleven different antigens associated with systemic autoimmune diseases (dsDNA,Sm,Sm/ART CONSULTANT,ART CONSULTANT,Chromatin, SSA,SSB,Ashlee-1,Scl70,Ribo P,Centromere B) are included in this screening test. Performed By: #### 1 9123-9, FEPR, 2276-4, 16111-5, 2131-9, 3016-3, 24397-6, CBCA, 67591-6, CMP #### [facility] ([id number]) [address] [place] [address] TSH Qnon 06-05-2023 TSH 0.61 uIU/mL Normal 0.49-4.[address] [facility] Comment on above: Performed By: #### 1 9123-9, FEPR, 2276-4, 50006-3, 2132-9, 3016-3, 92988-7, CBCA, 88065-7, CMP #### [facility] ([id number]) [address], [address] [place] [address] VITAMIN B12on 06-05-2023 Cobalamin (Vitamin B12) [Mass/Vol] 359 pg/mL Normal 180-[address] [facility] Comment on above: Performed By: #### 1 9123-9, FEPR, 2276-4, 20605-4, 2132-9, 3016-3, 62910-4, CBCA, 56939-2, CMP #### [facility] ([id number]) [address], [address] [place] [address] Vitamin D+Metabolites [Mass/ Vol]on 06-05-2023 VITAMIN D 25 HYD TOT 20.5 ng/mL Low 30-[address] [facility] Comment on above: Result Comment: Vitamin D status 25 [place] Vitamin D Deficiency <20 ng/mL Insufficiency 20-29 ng/mL Sufficiency 30-100 ng/mL Toxicity >100 ng/mL NOTE: A pediatric reference range has not been established by the scraper loader operator of this kit. The [place] [employer] recommends a Vitamin D level of = or >20ng/mL in infants and children. Performed By: #### 1 9123-9, FEPR, 2276-4, 72171-7, 2132-9, 3016-3, 54786-5, CBCA, 34683-4, CMP #### [facility] ([id number]) [address], [address] [place] [address] CBC AUTO DIFFon 06-11-2022 BASO # 0.1 103/ul Normal 0.0-0.1 [facility] Comment on above: Performed By: #### C BC #### [facility] [address] [address] [address] Cooper Chawla Basophils/100 WBC (Bld) 0.6 % Normal 0.2-2.0 [facility] Comment on above: Performed By: #### C BC #### [facility] [address] [place] [address] Dr. Cooper Chawla EO # 0.2 103/ul Normal 0.0-0.7 [facility] Comment on above: Performed By: #### C BC #### [facility] [address] [place] [address] Dr. Cooper Chawla Eosinophils/100 WBC (Bld) 2.2 % Normal 0.9-7.0 [facility] Comment on above: Performed By: #### C BC #### [facility] [address] [place] [address] Dr. Cooper Chawla Erythrocyte distribution width (RBC) [Ratio] 11.9 % Normal 11.0-15.0 [facility] Comment on above: Performed By: #### C BC #### [facility] [address] [place] [address] Dr. Cooper Chawla Hematocrit (Bld) [Volume fraction] 34.5 % Critically low 36.0-48.0 [facility] Comment on above: Performed By: #### C BC #### [facility] [address] [place] [address] Dr. Cooper Chawla Hemoglobin (Bld) [Mass/Vol] 12.5 g/dL Normal 12.0-16.0 [facility] Comment on above: Performed By: #### C BC #### [facility] [address] [place] [address] Dr. Cooper Chawla IG # 0.02 10e3/ul Normal 0.00-0.03 [facility] Comment on above: Performed By: #### C BC #### [facility] [address] [place] [address] Dr. Cooper Chawla IG % 0.2 % Normal 0.0-0.5 [facility] Comment on above: Performed By: #### C BC #### [facility] [address] [place] [address] Dr. Cooper Chawla LYMPH # 2.5 103/ul Normal 1.2-3.8 [facility] Comment on above: Performed By: #### C BC #### [facility] [address] [place] [address] Dr. Cooper Chawla Lymphocytes/100 WBC (Bld) 25.7 % Normal 20.5-60.0 [facility] Comment on above: Performed By: #### C BC #### [facility] [address] [place] [address] Dr. Cooper Chawla MANUAL DIFF REQ NO Normal [facility] Comment on above: Performed By: #### C BC #### [facility] [address] [place] [address] Dr. Cooper Chawla MCH (RBC) [Entitic mass] 32.4 pg Normal 26.7-34.0 [facility] Comment on above: Performed By: #### C BC #### [facility] [address] [place] [address] Dr. Cooper Chawla MCHC (RBC) [Mass/Vol] 36.2 g/dL Critically high 29.9-35.2 [facility] Comment on above: Performed By: #### C BC #### [facility] [address] [place] [address] Dr. Cooper Chawla MCV (RBC) [Entitic vol] 89.4 fL Normal 81.0-99.0 [facility] Comment on above: Performed By: #### C BC #### [facility] [address] [place] [address] Dr. Cooper Chawla MONO # 0.9 103/ul Critically high 0.3-0.8 [facility] Comment on above: Performed By: #### C BC #### [facility] [address] [place] [address] Dr. Cooper Chawla Monocytes/100 WBC (Bld) 9.7 % Normal 1.7-12.0 [facility] Comment on above: Performed By: #### C BC #### [facility] [address] [place] [address] Dr. Cooper Chawla NEUT # 5.9 103/ul Normal 1.4-6.5 [facility] Comment on above: Performed By: #### C BC #### [facility] [address] [address] [address] Cooper Chawla Neutrophils/100 WBC (Bld) 61.6 % Normal 43.0-75.0 [facility] Comment on above: Performed By: #### C BC #### [facility] [address] [place] [address] Dr. Cooper Chawla Platelet mean volume (Bld) [Entitic vol] 10.4 fL Normal 9.5-13.5 [facility] Comment on above: Performed By: #### C BC #### [facility] [address] [address] [address] Cooper Chawla PLT 168 103/ul Normal 150-450 [facility] Comment on above: Performed By: #### C BC #### [facility] [address] [place] [address] Dr. Cooper Chawla RBC 3.86 106/ul Critically low 4.20-5.40 [facility] Comment on above: Performed By: #### C BC #### [facility] [address] [place] [address] Dr. Cooper Chawla WBC 9.6 103/ul Normal 4.0-11.0 [facility] Comment on above: Performed By: #### C BC #### [facility] [address] [place] [address] Dr. Cooper Chawla CRPon 06-11-2022 CRP 0.9 mg/dL Normal <=1.0 [facility] Comment on above: Performed By: #### B MP, CRP #### [facility] [address] [place] [address] Dr. Cooper Chawla PROF CHEM 8 (BAS METB)on Anion gap [Moles/Vol] 8.9 mmol/L Normal [facility] Comment on above: Performed By: #### B MP, CRP #### [facility] [address] [place] [address] Dr. Cooper Chawla Calcium [Mass/Vol] 8.3 mg/dL Critically low 8.5-10.1 [facility] Comment on above: Performed By: #### B MP, CRP #### [facility] [address] [address] [address] Cooper Chawla Chloride [Moles/Vol] 104 mmol/L Normal 98-107 [facility] Comment on above: Performed By: #### B MP, CRP #### [facility] [address] [address] [address] Cooper Chawla CO2 [Moles/Vol] 30.2 mmol/L Normal 21.0-32.0 [facility] Comment on above: Performed By: #### B MP, CRP #### [facility] [address] [address] [address] Cooper Chawla Creatinine [Mass/Vol] 0.72 mg/dL Normal 0.55-1.02 [facility] Comment on above: Performed By: #### B MP, CRP #### [facility] [address] [address] [address] Cooper Chawla EGFR-AF SOMALI >60 Normal >=60 [facility] Comment on above: Performed By: #### B MP, CRP #### [facility] [address] [address] [address] Cooper Chawla EGFR-NON AF SOMALI >60 Normal >=60 [facility] Comment on above: Performed By: #### B MP, CRP #### [facility] [address] [address] [address] Cooper Chawla Glucose [Mass/Vol] 92 mg/dL Normal 74-106 [facility] Comment on above: Performed By: #### B MP, CRP #### [facility] [address] [address] [address] Cooper Chawla Potassium [Moles/Vol] 4.1 mmol/L Normal 3.5-5.1 [facility] Comment on above: Performed By: #### B MP, CRP #### [facility] [address] [address] [address] Cooper Chawla Sodium [Moles/Vol] 139 mmol/L Normal 136-145 [facility] Comment on above: Performed By: #### B MP, CRP #### [facility] [address] [address] [address] Cooper Chawla Urea nitrogen [Mass/Vol] 18.0 mg/dL Normal 7.0-18.0 [facility] Comment on above: Performed By: #### B MP, CRP #### [facility] [address] [place] [address] Dr. Cooper Chawla Urea nitrogen/Creatinine [Mass ratio] 25.0 mg/mg Normal [facility] Comment on above: Performed By: #### B MP, CRP #### [facility] [address] [place] [address] Dr. Cooper Chawla XR FOOT RT MIN 3 VIEWSon XR FOOT RT MIN 3 VIEWS EXAM: XR FOOT RT MIN 3 VIEWS HISTORY: Pain COMPARISON: None. TECHNIQUE: 3 views of the right foot are performed. FINDINGS: There is no acute fracture. The bony structures are intact. Joint spaces are maintained. There is an enthesophyte at the insertion of the Achilles tendon. IMPRESSION: No acute bony abnormality. Electronically authenticated by: ISMAEL KELLOGG Date: 2022-02-03 23:15 Normal [facility] PAP ACOG PANEL 2: 30 to 65on 01-23-2022 . . Normal [facility] Comment on above: Result Comment: Perf ormed at: WB Performed By: #### [id number] #### [facility] [address] [place] [address] Dr. Cooper Chawla Age Gdln ACOG Testing 30-65 Normal [facility] Comment on above: Performed By: #### [id number] #### [facility] [address] [place] [address] Dr. Cooper Chawla DIAGNOSIS: Comment Normal [facility] Comment on above: Result Comment: NEGA TIVE FOR INTRAEPITHELIAL LESION OR MALIGNANCY. Performed at: WB Performed By: #### 4 [id number] #### [facility] [address] [place] [address] Dr. Cooper Chawla HPV Aptima Negative Normal Negative [facility] Comment on above: Result Comment: This nucleic acid amplification test detects fourteen high-risk HPV types (16,18,31,33,35,39,45,51,52,56,58,59,66,68) without differentiation. Performed at: =G Performed By: #### 4 [id number] #### [facility] [address] [place] [address] Dr. Cooper Chawla Methodology: Comment [facility] Comment on above: Result Comment: This liquid based ThinPrep(R) pap test was screened with the use of an image guided system. Performed at: WB Performed By: #### 4 [id number] #### [facility] [address] [place] [address] Dr. Cooper Chawla Note: Comment Normal [facility] Comment on above: Result Comment: The Pap smear is a screening test designed to aid in the detection of premalignant and malignant conditions of the uterine cervix. It is not a diagnostic procedure and should not be used as the sole means of detecting cervical cancer. Both false-positive and false-negative reports do occur. . Performed at: WB Performed By: #### [id number] #### [facility] [address] [place] [address] Dr. Cooper Chawla Performed by: Comment Normal [facility] Comment on above: Result Comment: Malena Garcia, Poultry Boner (ASCP) Performed at: WB Performed By: #### [id number] #### [facility] [address] [place] [address] Dr. Cooper Chawla Specimen adequacy: Comment Normal [facility] Comment on above: Result Comment: Sati sfactory for evaluation. Endocervical and/or squamous metaplastic cells (endocervical component) are present. Performed at: WB Performed By: #### 4 [id number] #### [facility] [address] [place] [address] Dr. Cooper Chawla CULTURE URINEon 01-20-2022 CULTURE URINE Specimen Comments: id/ast 01/20/22 dm Isolate 1 Escherichia coli 100,000 cfu/mL of Isolate 2 Enterococcus faecalis 75,000 cfu/mL of ORGANISM 2 Enterococcus faecalis ANTIBIOTIC M.I.C RX STATUS Beta-Lactamase Neg NEG F Benzylpenicillin 2 S F Ampicillin <=2 S F Gentamicin High Level (synergy) SYN-S S F Streptomycin High Level (synergy) SYN-S S F Ciprofloxacin <=0.5 S F Levofloxacin 0.5 S F Quinupristin/Dalfopris tin 2 R F Linezolid 2 S F Vancomycin 1 S F Tetracycline >=16 R F Nitrofurantoin <=16 S F ORGANISM 1 Escherichia coli ANTIBIOTIC M.I.C RX STATUS Ampicillin <=2 S F Ampicillin/Sulbactam <=2 S F Piperacillin/Tazobacta m <=4 S F Cefazolin <=4 S F Ceftazidime <=1 S F Ceftriaxone <=1 S F Ertapenem <=0.5 S F Imipenem <=0.25 S F Amikacin <=2 S F Gentamicin <=1 S F Tobramycin <=1 S F Ciprofloxacin <=0.25 S F Levofloxacin <=0.12 S F Nitrofurantoin <=16 S F Trimethoprim/Sulfameth oxazole <=20 S F Normal [facility] Comment on above: Performed By: #### U RCX #### [facility] [address] [place] [address] Dr. Cooper Chawla MG MAMM SCREEN 3D JAN CADon 10-13-2021 MG MAMM SCREEN 3D JAN CAD Patient: VERO YANG Exam Date: 10/13/2021 : 1980 Gender:F Ordering : DR KATHERINE MCCLAIN . Admission #: [id number] Family : Order #: [id number] CLICK HERE TO VIEW EXAM RADIOLOGY REPORT PROCEDURE: MAMMOGRAM SCREENING 3D BILATERAL CAD COMPARISON: MG MAMM SCREEN JAN W CAD, 05/13/2020. INDICATIONS: Screening mammography Calculator Name NCI Breast Cancer Risk Assessment Tool 5 Year Breast Cancer Risk 0.50% Lifetime Breast Cancer Risk 9.00% Personal Breast Cancer No Personal Ovarian Cancer No Treatments None Family Cancers Aunt-maternal with breast cancer at age 60; Grandmother-maternal with leukemia cancer at age 20. LOCATION: [facility] BREAST COMPOSITION: Scattered areas fibroglandular density. FINDINGS: DIAGNOSTIC CATEGORY 1--NEGATIVE. NO CHANGE FROM COMPARISON ASSESSMENT. Scattered benign-appearing nodules are present. Scattered benign-appearing calcifications are present. Scattered benign-appearing lymph nodes are present. RIGHT BREAST: No significant suspicious finding. LEFT BREAST: No significant suspicious finding. RECOMMENDATIONS: ROUTINE MAMMOGRAM AND CLINICAL EVALUATION IN 12 MONTHS. PLEASE NOTE: A NORMAL MAMMOGRAM DOES NOT EXCLUDE THE POSSIBILITY OF BREAST CANCER. A CLINICALLY SUSPICIOUS PALPABLE LUMP SHOULD BE BIOPSIED. Dictated by: William Gandhi MD on 10/13/2021 at 13:48 Approved by: William Gandhi MD on 10/13/2021 at 15:00 Normal [facility] Vital Signs Date Time Vital Sign Value Performing Clinician Shani rivera 07-15-2023 11:37-0500 Body mass index (BMI) [Ratio] 32.88 kg/m2 Brittany GUIDO Work Phone: [facility] 07-15-2023 11:37-0500 Body weight 78.93 kg Brittany GUIDO Work Phone: [facility] 07-15-2023 11:37-0500 Diastolic blood pressure 70 mm[Hg] Brittany GUIDO Work Phone: [facility] 07-15-2023 11:37-0500 Systolic blood pressure 122 mm[Hg] Brittany GUIDO Work Phone: [facility] Encounters Encounter Date Encounter Type Care Provider Facility Start: 06-24-2024 End: 06-24-[address] [facility] Start: 07-15-2023 End: 07-15-2023 ambulatory BRITTANY SNOW Not Available Start: 07-15-2023 End: 07-15-2023 Office outpatient visit 15 minutes Brittany GIUDO Work Phone: [facility] Comment on above: Encounter for weight management Start: 07-04-2023 End: 07-04-[address] [facility] Start: 07-04-2023 Encounter for genera l adult medical examination without abnormal findings [facility] Start: 06-17-2023 End: 06-17-2023 ambulatory KATHERINE MCCLAIN Not Available Start: 06-05-2023 End: 06-06-2023 ambulatory [facility] Start: 06-05-2023 Encounter for genera l adult medical examination without abnormal findings [facility] Start: 07-04-2022 End: 07-04-[address] NONE LISTED REQUEST Facility:[facility] Start: 06-13-2022 End: 06-13-[address] NONE LISTED REQUEST Facility:[facility] Start: 06-10-2022 End: 06-11-2022 ambulatory NONE LISTED REQUEST Facility:[facility] Start: 02-03-2022 End: 02-04-2022 ambulatory SHANNAN COHEN Facility:[facility] Start: 01-17-2022 End: 01-17-[address] KATHERINE MCCLAIN Facility:[facility] Start: 10-13-2021 End: 10-14-[address] KATHERINE MCCLAIN Facility:[facility] Plan of Treatment Date Care Activity Detail Author Start: 08-12-2023 End: 08-12-2023 Patient encounter procedure 08/12/2023 9:50 AM EDT Office Visit [facility] [address] [place] [address] Brittany Snow PA [address] [place] [address] [facility] Payers Date Payer Category Payer Medicaid [employer] [place] [employer] [id number] 2015-Present [address] [place] [address] [id number] 1980 Unknown [id number] 1980 Unknown [id number] 1980 Unknown [id number] 1980 Unknown [id number] [id number] 1980 Unknown [id number] [id number] 1980 Unknown [id number] [id number] 1980 Unknown [id number] [id number] 1980 Unknown [id number] [id number] 1980 Unknown [id number] [id number] 1980 Unknown [id number] [id number] 1980 Unknown [id number] 1959 Unknown [id number] 1959 Unknown [id number] Social History Date Type Detail Facility Start: 05-28-2023 Tobacco smoking stat [facility] Tobacco smoking consumption unknown [facility] Start: 07-15-2023 Alcohol intake Lifetime non-d abdoulaye (finding) [facility] Start: 05-28-2023 Tobacco Comment * Current smok er, frequency unknownThinking about quitting [facility] Start: 05-28-2023 Alcohol Comment caffeine: 1-2 cups p er day [facility] Start: 1980 Sex Assigned At Not on file [facility] Gender identity Not on file [facility] History of Present illness Narrative 07-15-2023 LATA Vann - 07/15/2023 11:30 AM EST Note Date & Type Note Facility 07-15-2023 History of Presen t illness Narrative Reason for Appointment: Patient ID: Vero Yang is a 43 y.o. female who presents for Weight Management Patient presents today for a weight management consultation. Patient desires to initiate Adipex. Initial Vitals for Adipex prescription #1: Estimated body mass index is 32.88 kg/m as calculated from the following: Height as of 22: 5' 1 . Weight as of this encounter: 174 lb. Allergies as of 07/15/2023 - Reviewed 07/15/2023 Allergen Reaction Noted Chlorpheniramine 06/12/2023 Guaifenesin Other 06/12/2023 Miconazole 06/05/2023 Miconazole nitrate Other 06/12/2023 Phenylephrine Other 06/12/2023 Pseudoephedrine-acetaminophen Hives 06/05/2023 Wound dressing adhesive Rash 06/05/2023 Past Medical History: Diagnosis Date Anxiety Bacterial vaginosis Depression (CMS/HCC) Dermatitis Foot fracture, left Ganglion cyst of wrist, left Hypercholesterolemia (CMS/HCC) Myalgia Past Surgical History: Procedure Laterality Date ADENOIDECTOMY 04/18/2012 APPENDECTOMY 2002 CERVICAL BIOPSY W/ LOOP ELECTRODE EXCISION 2000 and Laser GANGLION CYST EXCISION Left 2006 wrist ORIF FOOT FRACTURE Left 2016 TONSILLECTOMY 04/18/2012 TUBAL LIGATION 2016 Review of Systems: Review of Systems Constitutional: Negative. HENT: Negative. Eyes: Negative. Respiratory: Negative. Cardiovascular: Negative. Gastrointestinal: Negative. Musculoskeletal: Negative. Skin: Negative. Neurological: Negative. Psychiatric/Behavioral: Negative. All other systems reviewed and are negative. Hematological: Negative. Endocrine: Negative. Objective Physical Exam Constitutional: Appearance: Normal appearance. She is normal weight. HENT: Head: Normocephalic. Cardiovascular: Rate and Rhythm: Normal rate. Pulses: Normal pulses. Pulmonary: Effort: Pulmonary effort is normal. Breath sounds: Normal breath sounds. Abdominal: Palpations: Abdomen is soft. Musculoskeletal: General: Normal range of motion. Neurological: General: No focal deficit present. Mental Status: She is alert and oriented to person, place, and time. Psychiatric: Mood and Affect: Mood normal. Behavior: Behavior normal. Thought Content: Thought content normal. Judgment: Judgment normal. Vitals and nursing note reviewed. Assessment/Plan Encounter Diagnosis Name Primary? Encounter for weight management Patient presents today for initial Adipex prescription. I have discussed in detail the importance of keeping a food journal, proper nutrition/diet, and exercise regimen while taking Adipex. Patient verbalized understanding and signed consents to initiate (Adipex) medication therapy. Patient was given a printed prescription signed by provider to take to their local pharmacy. Pt has used adipex in the past and is currently taking metformin Follow Up: Patient is to return to the office in 1 month for further evaluation to assess patient progress. Weight and blood pressure will need to be captured in order for patient to receive 2nd prescription. Documented by: LATA Vann on behalf of LATA Vann documented in this encounter [facility] Evaluation note Note Date & Type Note Facility Evaluation note Diagnosis Encounter for weight management documented in this encounter [facility] Summary Purpose Family History No Family History Records FoundNo Family History Records FoundNo Family History Records FoundNo Family History Records Found Advance Directives No Advanced Directives Records FoundNo Advanced Directives Records FoundNo Advanced Directives Records FoundNo Advanced Directives Records Found Additional Source Comments INFORMATION SOURCE (unrecogn ized section and content) DATE CREATED AUTHOR 07/11/[address] [facility] DATE CREATED AUTHOR AUTHOR'S ORGANIZ ATION 06/09/[address] [facility] DATE CREATED AUTHOR AUTHOR'S ORGANIZ ATION 07/16/2023 [facility] DATE CREATED AUTHOR AUTHOR'S ORGANIZ ATION 06/26/2024 [facility] Reason for Visit (unrecogniz ed section and content) Reason Comments Weight Management FOR RECORDS PERTAINING TO PATIENTS WHO ARE OR HAVE BEEN ENROLLED IN A CHEMICAL DEPENDENCY/SUBSTANCEABUSE PROGRAM, SOME INFORMATION MAY BE OMITTED. This clinical summary was aggregated from multiple sources. Caution should be exercised in using it in the provision of clinical care. This summary normalizes information from multiple sources, and as a consequence, information in this document may materially change the coding, format and clinical context of patient data. In addition, data may be omitted in some cases. CLINICAL DECISIONS SHOULD BE BASED ON THE PRIMARY CLINICAL RECORDS. [facility]. provides no warranty or guarantee of the accuracy or completeness of information in this document.
== END 2024-07-22 10:21 | disposition home or self-care (01) ==
LOC: CT 10:20
PROVIDERS: PCP Nurse Practitioner; Visit Provider Nurse Practitioner
DX: R91.1 Solitary pulmonary nodule (principal); N20.0 Calculus of kidney
CPT/HCPCS: 71250

== ENCOUNTER 2024-09-21 10:57 | Outpatient (OUT) | payer OTHER, SELFPAY ==
--- NOTE | 2024-09-21 10:59 | MM_ITS ---
Patient Name: VERO MCGEE MR#: [id number] : 1980 Exam Date: 09/21/2024 Ordering Doctor: ERICA CARTER RADIOLOGY REPORT PROCEDURE: MM TOMOSYNTHESIS SCREENING BI COMPARISON: MM TOMOSYNTHESIS SCREENING BI, 01/25/2023. MG MAMM SCREEN 3D JAN CAD, 10/13/2021. MG MAMM SCREEN JAN W CAD, 05/13/2020. INDICATIONS: Screening Calculator Name NCI Breast Cancer Risk Assessment Tool 5 Year Breast Cancer Risk 0.70% Lifetime Breast Cancer Risk 8.70% Personal Breast Cancer No Personal Ovarian Cancer No Treatments None Family Cancers Aunt-maternal with breast cancer at age 60; Grandmother-maternal with leukemia cancer at age 20. LOCATION: [facility] BREAST COMPOSITION: There are scattered areas of fibroglandular density. FINDINGS: RIGHT BREAST: No significant suspicious finding. LEFT BREAST: No significant suspicious finding. DIAGNOSTIC CATEGORY 1--NEGATIVE. RECOMMENDATIONS: ROUTINE MAMMOGRAM AND CLINICAL EVALUATION IN 12 MONTHS. PLEASE NOTE: A NORMAL MAMMOGRAM DOES NOT EXCLUDE THE POSSIBILITY OF BREAST CANCER. A CLINICALLY SUSPICIOUS PALPABLE LUMP SHOULD BE BIOPSIED. Dictated by: Dilan Barron DO on 09/21/2024 at 13:10 Approved by: Dilan Barron DO on 09/21/2024 at 13:14
== END 2024-09-21 10:58 | disposition home or self-care (01) ==
LOC: MAMMO 10:57
PROVIDERS: PCP Nurse Practitioner; Visit Provider Nurse Practitioner
DX: Z12.31 Encounter for screening mammogram for malignant neoplasm of breast (principal); Z80.3 Family history of malignant neoplasm of breast; Z80.6 Family history of leukemia
CPT/HCPCS: 77063; 77067